=== PATIENT | female | born 1975 | race Caucasian/White ===

== ENCOUNTER 2017-07-10 11:46 | Emergency (ER) | payer SELFPAY ==
--- NOTE | 2017-07-10 11:58 | PDOC ---
Attending Attestation - Resident Resident Name: Cj Salmeron - HPI HPI: 07/10/17 12:28 Pt presents to the ED complaining of a two day history of wheezing and shortness of breath consistent with prior asthma exacerbations. History of asthma without intubations. used nebs last night without relief. - Physicial Exam PE: 07/10/17 12:31 Agree with resident exam. Patient is speaking in complete sentences but is diffusely wheezing with good air entry bilaterally. Not tachypneic. - Medical Decision Making 07/10/17 12:31 Pt presents to the ED complaining of wheezing and shortness of breath consistent with prior asthma exacerbations. Will treat with nebs and steroids and reassess.
[2017-07-10] MEDS ORDERED: ALBUTEROL SO4 2.5/IPRATROPIUM 0.5 INH SOL 3 ML VIAL.NEB. NEB ONE ×3 (12:02→12:29)
[2017-07-10] MEDS ORDERED: predniSONE 20 MG TABLET (UD) PO ONE (12:05)
--- NOTE | 2017-07-10 12:06 | PDOC ---
History of Present Illness - General Chief Complaint: Shortness of Breath Stated Complaint: SOB Time Seen by Provider: 07/10/17 11:49 - History of Present Illness Initial Comments: 07/10/17 12:09 The patient is a 41 year old female with a history of asthma who presents for evaluation of an asthma exacerbation. The patient reports waking up this morning with SOB and cough typical of her asthma exacerbations unresponsive to her inhaler. She states that she initially presented to [facility] but left AMA after a duoneb treatment because she felt she wasn't getting seen. She states that she initially felt better at home, but redeveloped symptoms at home prompting her presentation to our ED for evaluation. She received [address] to our ED. She denies fevers, chills, sick contacts, chest pain, abdominal pain, or changes with urination or bowel movements. Past History - Past Medical History Allergies/Adverse Reactions: Allergies Allergy/AdvReac Type Severity Reaction Status Date / Time No Known Allergies Allergy Verified 07/10/17 11:59 Home Medications: Ambulatory Orders Albuterol Sulfate Inhaler - [Ventolin HFA Inhaler -] 1 - 2 inh PO QID PRN #2 inhaler 07/10/17 Prednisone [Deltasone -] 40 mg PO DAILY #5 tablet 07/10/17 Asthma: Yes COPD: No - Suicide/Smoking/Psychosocial Hx Smoking History: Former smoker Have you smoked in the past 12 months: No If you are a former smoker, when did you quit?: 2016 Information on smoking cessation initiated: No Hx Alcohol Use: No Drug/Substance Use Hx: No Review of Systems - Review of Systems Comments:: 07/10/17 12:12 Constitutional: No fevers, chills, fatigue, malaise HEENT: No Rhinorrhea, nasal congestion, visual changes Cardiovascular: No chest pain, syncope, palpitations, lightheadedness Respiratory: Cough, SOB. No Hemoptysis, Gastrointestinal: No Abdominal pain, Nausea, Vomiting, Constipation, Diarrhea, Melena Genitourinary: No Dysuria, Frequency, Urgency, Hesitancy, Hematuria, Flank pain Musculoskeletal: No Myalgia, arthralgia Skin: No rashes, bruising, pallor Neurologic: No Headache, Dizziness, Numbness, Weakness, or Tingling Psychiatric: No Hallucinations. No SI or HI *Physical Exam - Vital Signs Last Vital Signs Temp Pulse Resp BP Pulse Ox 98.4 F 100 H 22 113/79 99 07/10/17 12:00 07/10/17 12:00 07/10/17 12:00 07/10/17 12:00 07/10/17 12:00 - Physical Exam Comments: 07/10/17 12:12 General Appearance: Nourished. No Apparent Distress HEENT: EOMI, BROCK. No Pharyngeal Erythema, Tonsillar Exudate, Tonsillar Erythema Neck: No Cervical Lymphadenopathy Respiratory/Chest: Lungs Clear, Normal Breath Sounds. Diffuse expiratory and inspiratory wheezing noted on auscultation. No Crackles, Rales, Rhonchi, Cardiovascular: Regular Rhythm, Regular Rate. No Murmur, Gallops, Rubs Gastrointestinal/Abdominal: Normal Bowel Sounds, Soft. No Guarding, Rebound, Tenderness Musculoskeletal: No CVA Tenderness Extremity: Normal Capillary Refill Integumentary: Normal Color, Dry, Warm Neurologic: Fully Oriented, Alert, Normal Mood/Affect, Normal Response, Medical Decision Making - Medical Decision Making 07/10/17 12:13 The patient is a 41 year old female with a history of asthma who presents for evaluation of an asthma exacerbation. Given the patient's history of asthma and physical exam, it is likely her symptoms are due to an asthma exacerbation. We will treat the patient here with duonebs and oral prednisone in the ED. We will continue to monitor and reassess. 07/10/17 14:23 The patient reports significant improvement in her symptoms after 2 dounebs and 1 albuterol nebulizer. We are comfortable discharging the patient home at this time on a course of prednisone and primary care provider follow up. We discussed the plan with the patient who voiced understanding and is agreeable with the plan. *DC/Admit/Observation/Transfer Diagnosis at time of Disposition: Asthma exacerbation Qualifiers: Asthma severity: mild Asthma persistence: unspecified Qualified Code(s): J45.901 - Unspecified asthma with (acute) exacerbation - Discharge Dispostion Disposition: HOME Condition at time of disposition: Improved Admit: No - Prescriptions Prescriptions: Albuterol Sulfate Inhaler - [Ventolin HFA Inhaler -] 1 - 2 inh PO QID PRN #2 inhaler PRN Reason: Short Of Breath/Wheezing Prednisone [Deltasone -] 40 mg PO DAILY #5 tablet - Referrals - Patient Instructions Printed Discharge Instructions: DI for Asthma -- Adult Additional Instructions: Please return to the ER if you experience concerning or worsening symptoms including worsening difficulty breathing, chest pain or fevers. We have sent a prescription for steroids to your pharmacy which you should take 40mg daily for the next 5 days. Please call to schedule a follow up appointment with your primary care provider to discuss your ER visit and further management of your symptoms within 1 week. - Post Discharge Activity
[2017-07-10] MEDS ORDERED: predniSONE 20 MG TABLET (UD) ONE (12:09)
[2017-07-10 12:10] VITALS: TEMP 98.4; BMI 32.8
[2017-07-10] MEDS ORDERED: ALBUTEROL SO4 0.5 % INH SOLN 2.5 MG/0.5 ML VIAL.NEB. NEB ONE (13:07)
[2017-07-10] MEDS ORDERED: ALBUTEROL SO4 0.083% IH SOL 2.5 MG/3 ML VIAL.NEB. NEB ONE (13:15)
[2017-07-10 14:32] VITALS: BP 108/68; PULSE 99
== END 2017-07-10 14:32 | disposition home or self-care (01) ==
LOC: JER 11:46
PROC: 3E0F7GC Introduction of Other Therapeutic Substance into Respiratory Tract, Via Natural or Artificial Opening (ICD-10-PCS; principal; 2017-07-10)
PROC: 3E0F7GC Introduction of Other Therapeutic Substance into Respiratory Tract, Via Natural or Artificial Opening (ICD-10-PCS; 2017-07-10)
PROC: 3E0F7GC Introduction of Other Therapeutic Substance into Respiratory Tract, Via Natural or Artificial Opening (ICD-10-PCS; 2017-07-10)
DX: J45.901 Unspecified asthma with (acute) exacerbation (principal)
CPT/HCPCS: 99282-25

== ENCOUNTER 2017-08-24 00:16 | Emergency (ER) | payer SELFPAY ==
[2017-08-24 00:34] VITALS: BP 147/82; PULSE 100; BMI 30.7
[2017-08-24] MEDS ORDERED: ALBUTEROL SO4 0.083% IH SOL 2.5 MG/3 ML VIAL.NEB. NEB ONE ×3 (01:04→01:37)
[2017-08-24] MEDS ORDERED: methylPREDNISolone NA SUCC 125 MG/2 ML VIAL IVPB ONE (01:04)
--- NOTE | 2017-08-24 01:04 | PDOC ---
History of Present Illness - General History Source: Patient Exam Limitations: No Limitations - History of Present Illness Initial Comments: 08/24/17 01:39 Patient is a 43 year old woman with a significant past medical history of Asthma , who presents to the ED with complaints of Sob that began 1 hour prior to ED arrival. Patient reports being unable to breathe upon ED arrival and does not state any other complaints. Denies chest pain, nausea, vomiting. Denies lightheadedness, dizziness. Denies coughing. Deneis vision changes. Denies sick contacts, out of state travel. Denies any other symptoms. Allergies: None Social history: Former smoker. No alcohol. No illicit drugs. Surgical history: None PMD: None <Matt Brown - Last Filed: 08/24/17 01:39> - General History Source: Patient <RaulitoBro zaman - Last Filed: 08/24/17 02:09> - General Chief Complaint: Respiratory Stated Complaint: DIFFICULTY BREATHING Time Seen by Provider: 08/24/17 01:02 Past History <Matt Brown - Last Filed: 08/24/17 01:39> - Past Medical History Asthma: Yes COPD: No - Suicide/Smoking/Psychosocial Hx Smoking History: Unknown if ever smoked Have you smoked in the past 12 months: No If you are a former smoker, when did you quit?: 2016 Information on smoking cessation initiated: No Hx Alcohol Use: No Drug/Substance Use Hx: No <Bro Thakkar - Last Filed: 08/24/17 02:09> - Past Medical History Allergies/Adverse Reactions: Allergies Allergy/AdvReac Type Severity Reaction Status Date / Time No Known Allergies Allergy Verified 08/24/17 00:31 Home Medications: Ambulatory Orders Albuterol Sulfate Inhaler - [Ventolin HFA Inhaler -] 1 - 2 inh PO QID PRN #2 inhaler 07/10/17 predniSONE [Deltasone -] 40 mg PO DAILY #5 tablet 07/10/17 Review of Systems - Review of Systems Able to Perform ROS?: Yes Comments:: 08/24/17 01:39 CONSTITUTIONAL: Absent: fever, no chills, no fatigue EYES: Absent: visual changes ENT: Absent: ear pain, no sore throat CARDIOVASCULAR: Absent: chest pain, no palpitations RESPIRATORY: +Sob. Absent: cough, GI: Absent: abdominal pain, no nausea, no vomiting, no constipation, no diarrhea GENITOURINARY: Absent: dysuria, no frequency, no hematuria MUSCULOSKELETAL: Absent: back pain, no arthralgia, no myalgia SKIN: Absent: rash <Matt Brown - Last Filed: 08/24/17 01:39> *Physical Exam - Vital Signs Last Vital Signs Temp Pulse Resp BP Pulse Ox 100 H 14 147/82 98 08/24/17 00:31 08/24/17 00:31 08/24/17 00:31 08/24/17 00:31 - Physical Exam Comments: 08/24/17 01:40 GENERAL: +Moderate distress. Well-appearing, well-nourished. No apparent distress. HEENT: Normocephalic, atraumatic. PERRL, EOM intact. CARDIOVASCULAR: Normal S1, S2. Regular rate and rhythm. PULMONARY: +Coarse bilateral wheezing. +Mild retractions. +Conversation dyspnea. Clear to auscultation bilaterally. ABDOMEN: Soft, non-distended, non-tender. EXTREMITIES: Normal ROM in all four extremities. No gross deformities. SKIN: Warm, dry. No rash NEUROLOGICAL: No focal neurological deficits. <Matt Brown - Last Filed: 08/24/17 01:39> - Vital Signs Last Vital Signs Temp Pulse Resp BP Pulse Ox 100 H 14 147/82 98 08/24/17 00:31 08/24/17 00:31 08/24/17 00:31 08/24/17 00:31 <Bro Thakkar - Last Filed: 08/24/17 02:09> Medical Decision Making - Medical Decision Making 08/24/17 02:08 Dr. Thakkar: The scribe's documentation has been prepared under my direction and personally reviewed by me in its entirery. I confirm that the note above accurately reflects all work, treatment, procedures, and medical decision making performed by me. Patient eloped without informing anyone from the staff, and received only albuterol nebulizer <Bro Thakkar - Last Filed: 08/24/17 02:09> *DC/Admit/Observation/Transfer - Attestations Scribe Attestion: 08/24/17 01:40 Documentation prepared by Matt Brown, acting as medical communication specialist for Bro Thakkar MD/DO. <Matt Brown - Last Filed: 08/24/17 01:39> - Discharge Dispostion Admit: No <Bro Thakkar - Last Filed: 08/24/17 02:09> Diagnosis at time of Disposition: Eloped - Discharge Dispostion Disposition: ELOPED Condition at time of disposition: Unchanged/Unknown
[2017-08-24] MEDS ORDERED: MAGNESIUM SULF 50% (8.12 MEQ/2 ML-1 GM VIAL) IVPB ONE (01:05)
[2017-08-24] MEDS ORDERED: MAGNESIUM SULF 50% (8.12 MEQ/2 ML-1 GM VIAL) ONE (01:37)
[2017-08-24] MEDS ORDERED: methylPREDNISolone NA SUCC 125 MG/2 ML VIAL ONE (01:37)
== END 2017-08-24 01:14 | disposition left against medical advice (07) ==
LOC: JER 00:16
PROC: 3E0F7GC Introduction of Other Therapeutic Substance into Respiratory Tract, Via Natural or Artificial Opening (ICD-10-PCS; principal; 2017-08-24)
DX: J45.909 Unspecified asthma, uncomplicated (principal); R06.02 Shortness of breath
CPT/HCPCS: 99281-25

== ENCOUNTER 2017-12-06 19:36 | Emergency (ER) | payer OTHER ==
[2017-12-06 19:41] VITALS: BP 128/92; PULSE 102; TEMP 98.1; BMI 31.3
[2017-12-06] MEDS ORDERED: ALBUTEROL SO4 2.5/IPRATROPIUM 0.5 INH SOL 3 ML VIAL.NEB. NEB ONE ×3 (19:41→20:30)
--- NOTE | 2017-12-06 19:42 | PDOC ---
Rapid Medical Evaluation Time Seen by Provider: 12/06/17 19:38 Medical Evaluation: Allergies Allergy/AdvReac Type Severity Reaction Status Date / Time No Known Allergies Allergy Verified 08/24/17 00:31 12/06/17 19:39 Asthma exacerbation starting last night. Used ventolin inhaler with little relief of symptom. Admits to dry cough. Has been admitted to the hospital for exacerbations, never intubated. Exam: RRR, Expiratory wheezing b/l Orders: duestefaniab Pt. to proceed to the ED for further evaluation
[2017-12-06] MEDS ORDERED: DEXAMETHASONE LIQUID 0.5 MG/5 ML 240 ML BULK BOTTLE PO ONE (20:27)
[2017-12-06] MEDS ORDERED: DEXAMETHASONE SOD PHOSPHATE 10 MG/1 ML VIAL ONE (20:30)
--- NOTE | 2017-12-06 20:31 | PDOC ---
History of Present Illness - General Chief Complaint: Asthma Stated Complaint: ASTHMA Time Seen by Provider: 12/06/17 19:38 - History of Present Illness Initial Comments: 32-year-old female with past medical history significant for asthma at times poorly controlled with home inhaler. She was never intubated however she was hospitalized multiple times. She presents for evaluation of difficulty breathing and shortness of breath since last night. 12/06/17 20:28 Past History - Past Medical History Allergies/Adverse Reactions: Allergies Allergy/AdvReac Type Severity Reaction Status Date / Time No Known Allergies Allergy Verified 08/24/17 00:31 Home Medications: Ambulatory Orders Albuterol Sulfate Inhaler - [Ventolin HFA Inhaler -] 1 - 2 inh PO QID PRN #2 inhaler 07/10/17 predniSONE [Deltasone -] 40 mg PO DAILY #5 tablet 07/10/17 Asthma: Yes COPD: No - Suicide/Smoking/Psychosocial Hx Smoking History: Unknown if ever smoked Have you smoked in the past 12 months: No If you are a former smoker, when did you quit?: 2016 Hx Alcohol Use: No Drug/Substance Use Hx: No Review of Systems - Review of Systems Comments:: GENERAL/CONSTITUTIONAL: No fever or chills. No weakness. No weight change. HEAD, EYES, EARS, NOSE AND THROAT: No change in vision. No ear pain or discharge. No sore throat. CARDIOVASCULAR: No chest pain or shortness of breath. RESPIRATORY: + cough, wheezing, difficulty breathing. GASTROINTESTINAL: No nausea, vomiting, diarrhea or constipation. No rectal bleeding. GENITOURINARY: No dysuria, frequency, or change in urination. MUSCULOSKELETAL: No joint or muscle swelling or pain. No neck or back pain. SKIN AND BREASTS: No rash or easy bruising. NEUROLOGIC: No headache, vertigo, loss of consciousness, or loss of sensation. PSYCHIATRIC: No depression or anxiety. ENDOCRINE: No increased thirst. No abnormal weight change. HEMATOLOGIC/LYMPHATIC: No anemia, easy bleeding, or history of blood clots. ALLERGIC/IMMUNOLOGIC: No hives or skin allergy. No latex allergy. 12/06/17 20:28 *Physical Exam - Vital Signs Last Vital Signs Temp Pulse Resp BP Pulse Ox 98.1 F 102 H 24 128/92 97 12/06/17 19:40 12/06/17 19:40 12/06/17 19:40 12/06/17 19:40 12/06/17 19:40 - Physical Exam Comments: GENERAL: The patient is awake, alert, and fully oriented, in no acute distress. HEAD: Normal with no signs of trauma. EYES: Pupils equal, round and reactive to light, extraocular movements intact, sclera anicteric, conjunctiva clear. ENT: Ears normal, nares patent, oropharynx clear without exudates. Moist mucous membranes. NECK: Normal range of motion, supple without lymphadenopathy, JVD, or masses. LUNGS: Diffuse expiratory wheezes HEART: Regular rate and rhythm, normal S1 and S2 without murmur, rub or gallop. ABDOMEN: Soft, nontender, normoactive bowel sounds. No guarding, no rebound. No masses. EXTREMITIES: Normal range of motion, no edema. No clubbing or cyanosis. No cords, erythema, or tenderness. NEUROLOGICAL: Cranial nerves II through XII grossly intact. Normal speech, normal gait. PSYCH: Normal mood, normal affect. SKIN: Warm, Dry, normal turgor, no rashes or lesions noted. 12/06/17 20:29 ED Treatment Course - Medications Given in the ED: ED Medications Discontinued Medications Generic Name Dose Route Start Last Admin Trade Name Freq PRN Reason Stop Dose Admin Albuterol/Ipratropium 1 amp 12/06/17 19:41 12/06/17 20:05 Duoneb - NEB 12/06/17 19:42 1 amp ONCE ONE Administration Medical Decision Making - Medical Decision Making 42-year-old female with an exacerbation of asthma. I will give her 2 more DuoNeb treatments. She's had 2 before I saw her. I will also add Decadron. I would like to add magnesium but she does not want an IV and she states that she cannot stay I've explained to her that if she is not wheezing and I am comfortable with her progress I will discharge her however I would like to give her magnesium since she's had severe asthma attacks in the past although she's never been intubated. 12/06/17 20:30 12/06/17 21:33 Reevaluation after the fourth DuoNeb and Decadron her wheezing has resolved she has full equal breath sounds bilaterally. She can be safely discharged. 12/06/17 21:35 *DC/Admit/Observation/Transfer Diagnosis at time of Disposition: Asthma - Discharge Dispostion Disposition: HOME Condition at time of disposition: Improved Decision to Admit order: No - Referrals Referrals: Wilmer Tam MD, MD [Staff Physician] - - Patient Instructions Printed Discharge Instructions: Asthma -- Adult Additional Instructions: Due to your recent exacerbation of asthma and poorly controlled home medications. I've referred to a kosher sealer. Return to the emergency room if your symptoms worsen or go unresolved prior to follow-up with pulmonology. In the meantime you've gotten a dose of oral steroids as well as for DuoNeb treatments. Follow-up with pulmonology within the next 1-2 days. - Post Discharge Activity
[2017-12-06] MEDS: ALBUTEROL SO4 2.5/IPRATROPIUM 0.5 INH SOL 3 ML VIAL.NEB. NEB SCH ×3 (20:33→21:14)
== END 2017-12-06 22:17 | disposition home or self-care (01) ==
LOC: JERFT 19:36
PROC: 3E0F7GC Introduction of Other Therapeutic Substance into Respiratory Tract, Via Natural or Artificial Opening (ICD-10-PCS; principal; 2017-12-06)
PROC: 3E0F7GC Introduction of Other Therapeutic Substance into Respiratory Tract, Via Natural or Artificial Opening (ICD-10-PCS; 2017-12-06)
DX: J45.901 Unspecified asthma with (acute) exacerbation (principal)
CPT/HCPCS: 94640; 99281-25; J7620

== ENCOUNTER 2017-12-28 03:01 | Emergency (ER) | payer SELFPAY ==
[2017-12-28] MEDS ORDERED: ALBUTEROL SO4 2.5/IPRATROPIUM 0.5 INH SOL 3 ML VIAL.NEB. NEB ONE ×2 (03:04→03:11)
[2017-12-28 03:36] VITALS: BP 112/100; PULSE 102; TEMP 97.3; BMI 31.1
[2017-12-28] MEDS ORDERED: predniSONE 20 MG TABLET (UD) PO ONE (03:40)
--- NOTE | 2017-12-28 03:41 | PDOC ---
History of Present Illness - General Chief Complaint: Asthma Stated Complaint: ASTHMA Time Seen by Provider: 12/28/17 03:37 History Source: Patient - History of Present Illness Initial Comments: 12/28/17 03:41 42 year old female with history of asthma c/o wheezing x 1 day. patient reports that she ran out of medication. Past History - Past Medical History Allergies/Adverse Reactions: Allergies Allergy/AdvReac Type Severity Reaction Status Date / Time No Known Allergies Allergy Verified 12/28/17 03:27 Home Medications: Ambulatory Orders Albuterol Sulfate Inhaler - [Ventolin HFA Inhaler -] 1 - 2 inh PO QID PRN #2 inhaler 12/28/17 predniSONE [Deltasone -] 60 mg PO DAILY #15 tablet 12/28/17 Asthma: Yes COPD: No - Suicide/Smoking/Psychosocial Hx Smoking History: Former smoker Have you smoked in the past 12 months: No If you are a former smoker, when did you quit?: 2015 Information on smoking cessation initiated: No Hx Alcohol Use: No Drug/Substance Use Hx: No Review of Systems - Review of Systems Able to Perform ROS?: Yes Is the patient limited Iranian proficient: No Constitutional: No: Symptoms Reported, See HPI, Chills, Diaphoresis, Fever, Loss of Appetite, Malaise, Night Sweats, Weakness, Weight Stable, Unintentional Wgt. Loss, Unexplained wgt Loss, Other HEENTM: No: Symptoms Reported, See HPI, Eye Pain, Blurred Vision, Tearing, Recent change in vision, Double Vision, Cataracts, Ear Pain, Ocular Prothesis, Ear Discharge, Nose Pain, Nose Congestion, Tinnitus, Nose Bleeding, Hearing Loss , Throat Pain, Throat Swelling, Mouth Pain, Dental Problems, Difficulty Swallowing, Mouth Swelling, Other Respiratory: Yes: Cough, Wheezing. No: Symptoms reported, See HPI, Orthopnea, Shortness of Breath, SOB with Exertion, SOB at Rest, Stridor, Productive cough, Hemoptysis, Other Cardiac (ROS): No: Symptoms Reported, See HPI, Chest Pain, Edema, Irregular Heart Rate, Lightheadedness, Palpitations, Syncope, Chest Tightness, Other ABD/GI: No: Symptoms Reported, See HPI, Abdominal Distended, Abd. Pain w/ defecation, Blood Streaked Bowels, Constipated, Diarrhea, Difficulty Swallowing , Nausea, Poor Appetite, Poor Fluid Intake, Rectal Bleeding, Vomiting, Indigestion, Abdominal cramping, Tarry Stools, Other *Physical Exam - Vital Signs Last Vital Signs Temp Pulse Resp BP Pulse Ox 97.3 F L 102 H 22 112/100 100 12/28/17 03:27 12/28/17 03:27 12/28/17 03:27 12/28/17 03:27 12/28/17 03:27 - Physical Exam General Appearance: Yes: Appropriately Dressed Respiratory/Chest: positive: Decreased Breath Sounds, Wheezing Cardiovascular: positive: Regular Rate, Tachycardia Gastrointestinal/Abdominal: positive: Normal Bowel Sounds, Soft Extremity: positive: Normal Capillary Refill, Normal Inspection, Normal Range of Motion Integumentary: positive: Normal Color, Dry, Warm Neurologic: positive: stone circular sawyer II-XII NML intact, Fully Oriented, Alert, Normal Mood/ Affect ED Treatment Course - Medications Given in the ED: ED Medications Discontinued Medications Generic Name Dose Route Start Last Admin Trade Name Freq PRN Reason Stop Dose Admin Albuterol/Ipratropium 3 amp 12/28/17 03:11 12/28/17 03:11 Duoneb - NEB 12/28/17 03:12 3 amp NOW ONE Administration Progress Note - Progress Note Progress Note: A: asthma exacerbation P: cbc cmp *DC/Admit/Observation/Transfer Diagnosis at time of Disposition: Asthma exacerbation Qualifiers: Asthma severity: mild Asthma persistence: intermittent Qualified Code(s): J45.21 - Mild intermittent asthma with (acute) exacerbation - Prescriptions Prescriptions: Albuterol Sulfate Inhaler - [Ventolin HFA Inhaler -] 1 - 2 inh PO QID PRN #2 inhaler PRN Reason: Short Of Breath/Wheezing predniSONE [Deltasone -] 60 mg PO DAILY #15 tablet - Referrals - Patient Instructions Printed Discharge Instructions: Asthma -- Adult - Post Discharge Activity Forms/Work/School Notes: Back to Work
[2017-12-28] MEDS ORDERED: ALBUTEROL SO4 0.083% IH SOL 2.5 MG/3 ML VIAL.NEB. NEB ONE ×2 (03:45→03:47)
[2017-12-28] MEDS ORDERED: predniSONE 20 MG TABLET (UD) ONE (03:47)
[2017-12-28] MEDS: ALBUTEROL SO4 2.5/IPRATROPIUM 0.5 INH SOL 3 ML VIAL.NEB. NEB SCH ×2 (03:51→04:06)
== END 2017-12-28 04:06 | disposition home or self-care (01) ==
LOC: JER 03:01
PROC: 3E0F7GC Introduction of Other Therapeutic Substance into Respiratory Tract, Via Natural or Artificial Opening (ICD-10-PCS; principal; 2017-12-28)
DX: J45.21 Mild intermittent asthma with (acute) exacerbation (principal); Z87.891 Personal history of nicotine dependence
CPT/HCPCS: 99281-25; J7620

== ENCOUNTER 2019-03-21 21:23 | Emergency (ER) | payer OTHER ==
[2019-03-21 21:33] VITALS: BP 112/71; PULSE 106; TEMP 98.7; BMI 34.4
[2019-03-21] MEDS ORDERED: LIDOCAINE 5% TOPICAL PATCH TP ONE (21:34)
[2019-03-21] MEDS ORDERED: KETOROLAC TROMETHAMINE 60 MG/2 ML VIAL IM ONE (21:34)
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
[2019-03-21] MEDS ORDERED: LIDOCAINE PATCH REMOVAL MC SCH (22:00)
[2019-03-21] MEDS ORDERED: KETOROLAC TROMETHAMINE 60 MG/2 ML VIAL ONE (22:06)
[2019-03-21] MEDS ORDERED: LIDOCAINE 5% TOPICAL PATCH ONE (22:06)
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
== END 2019-03-21 22:54 | disposition home or self-care (01) ==
LOC: JERFT 21:23
PROC: 3E0233Z Introduction of Anti-inflammatory into Muscle, Percutaneous Approach (ICD-10-PCS; principal; 2019-03-21)
DX: S16.1XXA Strain of muscle, fascia and tendon at neck level, initial encounter (principal); S39.012A Strain of muscle, fascia and tendon of lower back, initial encounter; V43.52XA Car driver injured in collision with other type car in traffic accident, initial encounter; Y92.410 Unspecified street and highway as the place of occurrence of the external cause; J45.909 Unspecified asthma, uncomplicated; Z87.891 Personal history of nicotine dependence
CPT/HCPCS: 99281-25

== ENCOUNTER 2019-04-14 12:00 | Emergency (ER) | payer OTHER ==
[2019-04-14 12:14] VITALS: BP 102/82; PULSE 75; TEMP 97.3; BMI 29.0
--- NOTE | 2019-04-14 12:16 | PDOC ---
History of Present Illness - General Chief Complaint: Asthma Stated Complaint: ASTHMA ATTACK Time Seen by Provider: 04/14/19 12:14 History Source: Patient Exam Limitations: No Limitations Past History - Travel Traveled outside of the country in the last 30 days: No Close contact w/someone who was outside of country & ill: No - Past Medical History Allergies/Adverse Reactions: Allergies Allergy/AdvReac Type Severity Reaction Status Date / Time No Known Allergies Allergy Verified 04/14/19 12:14 Home Medications: Ambulatory Orders Albuterol Sulfate Inhaler - [Ventolin HFA Inhaler -] 1 - 2 inh PO QID PRN #2 inhaler 12/28/17 Cyclobenzaprine HCl [Flexeril 10 mg] 10 mg PO HS PRN #10 tablet 03/21/19 Ibuprofen [Motrin -] 600 mg PO TID #30 tablet 03/21/19 Fluticasone/Salmeterol [Advair Hfa 45-21 Mcg Inhaler] 1 inh PO BID #1 inhaler predniSONE [Deltasone -] 40 mg PO DAILY #8 tablet 04/14/19 Asthma: Yes COPD: No - Psycho Social/Smoking Cessation Hx Smoking History: Never smoked Have you smoked in the past 12 months: No If you are a former smoker, when did you quit?: 2015 Information on smoking cessation initiated: No Hx Alcohol Use: No Drug/Substance Use Hx: No Review of Systems - Review of Systems Able to Perform ROS?: Yes Comments:: 04/14/19 14:25 CONSTITUTIONAL: Absent: fever, chills, diaphoresis, generalized weakness, malaise, loss of appetite HEENT: Absent: rhinorrhea, nasal congestion, throat pain, throat swelling, difficulty swallowing, mouth swelling, ear pain, eye pain, visual Changes CARDIOVASCULAR: Absent: chest pain, loss of consciousness, palpitations, irregular heart rate, peripheral edema RESPIRATORY: Present: wheezing, cough Absent: shortness of breath, dyspnea with exertion, orthopnea, stridor, hemoptysis GASTROINTESTINAL: Absent: abdominal pain, abdominal distension, nausea, vomiting, diarrhea, constipation, melena, hematochezia GENITOURINARY: Absent: dysuria, frequency, urgency, hesitancy, hematuria, flank pain, genital pain MUSCULOSKELETAL: Absent: myalgia, arthralgia, joint swelling SKIN: Absent: rash, itching, pallor HEMATOLOGIC/IMMUNOLOGIC: Absent: easy bleeding, easy bruising, lymphadenopathy, frequent infections ENDOCRINE: Absent: unexplained weight gain, unexplained weight loss, heat intolerance, cold intolerance NEUROLOGIC: Absent: headache, focal weakness or paresthesias, dizziness, unsteady gait, seizure, mental status changes, bladder or bowel incontinence PSYCHIATRIC: Absent: anxiety, depression, suicidal or homicidal ideation, hallucinations. Is the patient limited Iranian proficient: No *Physical Exam - Vital Signs Last Vital Signs Temp Pulse Resp BP Pulse Ox 97.3 F L 75 16 102/82 100 04/14/19 12:00 04/14/19 12:00 04/14/19 12:00 04/14/19 12:00 04/14/19 12:00 - Physical Exam Comments: 04/14/19 14:26 GENERAL: Well developed, well nourished. Awake and alert. No acute distress. HEENT: Normocephalic, atraumatic. PERRLA, EOMI. No conjunctival pallor. Sclera are non- icteric. Moist mucous membranes. Oropharynx is clear. NECK: Supple. Full ROM. No JVD. Carotid pulses 2+ and symmetric, without bruits. No thyromegaly. No lymphadenopathy. CARDIOVASCULAR: Regular rate and rhythm. No murmurs, rubs, or gallops. Distal pulses are 2+ and symmetric. PULMONARY: No evidence of respiratory distress. Lungs with wheezing b/l. Fair aeration to the bases. No rales or rhonchi. ABDOMINAL: Soft. Non-tender. Non-distended. No rebound or guarding. No organomegaly. Normoactive bowel sounds. MUSCULOSKELETAL Normal range of motion at all joints. No bony deformities or tenderness. No CVA tenderness. EXTREMITIES: No cyanosis. No clubbing. No edema. No calf tenderness. SKIN: Warm and dry. Normal capillary refill. No rashes. No jaundice. NEUROLOGICAL: Alert, awake, appropriate. Cranial nerves 2-12 intact. No deficits to light touch and temperature in face, upper extremities and lower extremities. No motor deficits in the in face, upper extremities and lower extremities. Normoreflexic in the upper and lower extremities. Normal speech. Toes are down- going bilaterally. Gait is normal without ataxia. PSYCHIATRIC: Cooperative. Good eye contact. Appropriate mood and affect. Medical Decision Making - Medical Decision Making 04/14/19 14:33 The patient is a 43-year-old female past medical history of asthma who presents to the ER today for an asthma exacerbation starting approximately 30 minutes prior to arrival. The patient states she tried using her albuterol inhaler at home however she states it was not working. She comes to the ER for duo nebs and steroids. She states that she has been hospitalized for her asthma previously; however, she has never been intubated. Denies shortness of breath, chest pain, sore throat, nausea vomiting diarrhea. A/P: Asthma exacerbation Patient needs asthma action plan criteria. Respiratory paged, case management request added. Four DuoNeb's and Decadron given in the ER with relief of symptoms. Respiratory at bedside and evaluating patient. Repeat lung sounds now without wheezing bilaterally. Patient discharged home with albuterol, Advair added to her daily regimen Pulmonology and primary care follow-up given. I discussed the physical exam findings, ancillary test results and final diagnoses with the patient. I answered all of the patient's questions. The patient was satisfied with the care received and felt comfortable with the discharge plan and treatment plan. The Patient agrees to follow up with the primary care physician/specialist within 24-72 hours. Return precautions were given. Discharge - Discharge Information Problems reviewed: Yes Clinical Impression/Diagnosis: Asthma exacerbation Qualifiers: Asthma severity: mild Asthma persistence: intermittent Qualified Code(s): J45.21 - Mild intermittent asthma with (acute) exacerbation Condition: Stable Disposition: HOME - Admission No - Additional Discharge Information Prescriptions: Fluticasone/Salmeterol [Advair Hfa 45-21 Mcg Inhaler] 1 inh PO BID #1 inhaler predniSONE [Deltasone -] 40 mg PO DAILY #8 tablet - Follow up/Referral Referrals: Wilmer Tam MD, MD [Staff Physician] - Giovani Mercado MD [Staff Physician] - - Patient Discharge Instructions Patient Printed Discharge Instructions: Asthma -- Adult Additional Instructions: You are evaluated for your asthma exacerbation today. Please start taking the prednisone 40 mg daily starting tomorrow. Use the albuterol inhaler every 4 hours until your spasm gets better. Start taking the Advair twice a day. Make sure you wash out your mouth and the spacer after taking the medication. Please follow-up with pulmonology. Referral has been attached Follow-up with your primary care doctor this week. Return to the ER for difficulty breathing, shortness of breath, chest pain or if you have any changes in her symptoms. - Post Discharge Activity
[2019-04-14] MEDS ORDERED: DEXAMETHASONE LIQUID 0.5 MG/5 ML PO ONE (12:20)
[2019-04-14] MEDS ORDERED: DEXAMETHASONE SOD PHOSPHATE 10 MG/1 ML VIAL ONE (12:23)
[2019-04-14] MEDS ORDERED: ALBUTEROL SO4 2.5/IPRATROPIUM 0.5 INH SOL 3 ML VIAL.NEB. NEB ONE ×2 (12:24→13:14)
[2019-04-14] MEDS: ALBUTEROL SO4 2.5/IPRATROPIUM 0.5 INH SOL 3 ML VIAL.NEB. NEB SCH ×3 (12:29→13:15)
== END 2019-04-14 13:19 | disposition home or self-care (01) ==
LOC: JERFT 12:00 → JER 12:00 → JERFT 13:19
PROC: 3E0F7GC Introduction of Other Therapeutic Substance into Respiratory Tract, Via Natural or Artificial Opening (ICD-10-PCS; principal; 2019-04-14)
DX: J45.21 Mild intermittent asthma with (acute) exacerbation (principal)
CPT/HCPCS: 94664; 99281-25

== ENCOUNTER 2019-06-09 08:04 | Emergency (ER) | payer OTHER ==
[2019-06-09] MEDS ORDERED: ALBUTEROL SO4 2.5/IPRATROPIUM 0.5 INH SOL 3 ML VIAL.NEB. NEB ONE ×4 (08:10→08:36)
[2019-06-09 08:15] VITALS: TEMP 98; BMI 29.0
--- NOTE | 2019-06-09 08:31 | PDOC ---
History of Present Illness - History of Present Illness Initial Comments: Becky French is a 43yo woman with a PMH of asthma who presents reporting an asthma exacerbation. She states that she had been feeling well yesterday but woke this morning and "couldn't breath at all." She reports that she had run out of her albuterol inhaler at home so was unable to treat her symptoms, though she did take 2 prednisone tablets that she had left over at home. Ms French denie any other symptoms including fever, recent illness, or congestion. She appears upset and is unwilling to answer additional questions. <Becki Simeon - Last Filed: 06/09/19 09:10> <Aleah Kelly - Last Filed: 06/10/19 15:39> - General Chief Complaint: Respiratory Stated Complaint: ASTHMA Time Seen by Provider: 06/09/19 08:24 Past History - Past Medical History Asthma: Yes COPD: No - Psycho Social/Smoking Cessation Hx Smoking History: Unknown if ever smoked Have you smoked in the past 12 months: No If you are a former smoker, when did you quit?: 2016 Hx Alcohol Use: No Drug/Substance Use Hx: No <Becki Simeon - Last Filed: 06/09/19 09:10> <Aleah Kelly - Last Filed: 06/10/19 15:39> - Past Medical History Allergies/Adverse Reactions: Allergies Allergy/AdvReac Type Severity Reaction Status Date / Time No Known Allergies Allergy Verified 06/09/19 08:13 Home Medications: Ambulatory Orders Albuterol Sulfate Inhaler - [Ventolin HFA Inhaler -] 1 - 2 inh PO QID PRN #2 inhaler 12/28/17 Fluticasone/Salmeterol [Advair Hfa 45-21 Mcg Inhaler] 1 inh PO BID #1 inhaler predniSONE [Deltasone -] 40 mg PO DAILY #8 tablet 04/14/19 Albuterol Sulfate Inhaler - [Ventolin Hfa Inhaler -] 1 - 2 inh PO Q4H PRN #1 inhaler 06/09/19 Prednisone [Prednisone 50 MG TABLETS] 50 mg PO DAILY #5 tablet 06/09/19 Review of Systems - Review of Systems Comments:: eneral: No fevers, no chills, no weight or appetite change, no malaise HEENT: No changes in vision, no changes in hearing, no congestion, no sore throat CV: No chest pain, no palpitations, no LE edema Pulm: See HPI GI: No nausea or vomiting, no change in bowel habits, no melena : No frequency, no urgency, no dysuria Musc: No back pain, no joint swelling, no recent injury Skin: No rash, no lesions, no erythema Endo: No excessive thirst, no heat/cold intolerance Heme: No unusual bruising or bleeding, no swollen glands Neuro: No syncope, no numbness/tingling, no focal weakness Vasc: No claudication Psych: No recent change in mood, no SI or HI <BenjyBecki castillo - Last Filed: 06/09/19 09:10> *Physical Exam - Vital Signs Last Vital Signs Temp Pulse Resp BP Pulse Ox 98 F 110 H 26 H 148/92 100 06/09/19 08:13 06/09/19 08:13 06/09/19 08:13 06/09/19 08:13 06/09/19 08:13 - Physical Exam General: Comfortable, no acute distress HEENT: PERRL, EOMI, MMM, voice normal, normal neck ROM Cards: RRR, no murmur appreciated Pulm: Breathing comfortably, good breath sounds, minimal scattered wheezing bilaterally Abd: Soft, nontender, nondistended Ext: Atraumatic. No LE edema. ROM intact. WWP Skin: Normal color, no rashes or lesions Neuro: A&Ox3, CN grossly intact, normal speech, motor/sensory grossly intact and symmetric Psych: Mood appropriate to situation <BenjyannaBecki - Last Filed: 06/09/19 09:10> - Vital Signs Last Vital Signs Temp Pulse Resp BP Pulse Ox 98 F 98 H 20 127/93 100 06/09/19 08:13 06/09/19 09:03 06/09/19 09:03 06/09/19 09:03 06/09/19 08:13 <Aleah Kelly - Last Filed: 06/10/19 15:39> ED Treatment Course - Medications Given in the ED: ED Medications Discontinued Medications Generic Name Dose Route Start Last Admin Trade Name Freq PRN Reason Stop Dose Admin Albuterol/Ipratropium 2 amp 06/09/19 08:15 06/09/19 08:16 Duoneb - NEB 06/09/19 08:16 2 amp NOW ONE Administration <Becki Simeon - Last Filed: 06/09/19 09:10> - Medications Given in the ED: ED Medications Discontinued Medications Generic Name Dose Route Start Last Admin Trade Name Jaison PRN Reason Stop Dose Admin Albuterol/Ipratropium 2 amp 06/09/19 08:15 06/09/19 08:16 Duoneb - NEB 06/09/19 08:16 2 amp NOW ONE Administration Albuterol/Ipratropium 1 amp 06/09/19 08:29 06/09/19 08:36 Duoneb - NEB 06/09/19 08:30 1 amp ONCE ONE Administration Ibuprofen 600 mg 06/09/19 08:46 06/09/19 09:03 Motrin - PO 06/09/19 08:47 Not Given ONCE ONE <Aleah Kelly - Last Filed: 06/10/19 15:39> Medical Decision Making - Medical Decision Making 06/09/19 08:30 Becky French is a 43yo woman with a PMH of asthma who presents reporting acute onset of SOB when she woke this morning. - Given 2 duonebs with improvement, only scattered wheezing. Pt reports still feeling SOB. - 3rd duoneb ordered. Will reassess - Pt already took prednisone at home, will not give additional 06/09/19 08:51 - Pt agitated, states she wants to leave - No wheezing on exam - Given albuterol MDI refill, prednisone 50mg for 5 days. Will d/c home with PMD follow up. Pt states she no longer has a PMD, will give info for the primary care center Discussed with Dr Leticia Simeon PGY2 <Becki Simeon - Last Filed: 06/09/19 09:10> Discharge - Discharge Information Problems reviewed: Yes - Admission No <Becki Simeon - Last Filed: 06/09/19 09:10> <Aleah Kelly - Last Filed: 06/10/19 15:39> - Discharge Information Clinical Impression/Diagnosis: Asthma exacerbation Qualifiers: Asthma severity: mild Asthma persistence: unspecified Qualified Code(s): J45.901 - Unspecified asthma with (acute) exacerbation Condition: Stable Disposition: HOME - Additional Discharge Information Prescriptions: Albuterol Sulfate Inhaler - [Ventolin Hfa Inhaler -] 1 - 2 inh PO Q4H PRN #1 inhaler PRN Reason: Short Of Breath/Wheezing Prednisone [Prednisone 50 MG TABLETS] 50 mg PO DAILY #5 tablet - Follow up/Referral Referrals: Katie Sylvester MD [Primary Care Provider] - - Patient Discharge Instructions Patient Printed Discharge Instructions: DI for Asthma -- Adult Additional Instructions: Discharge Instructions: You were seen in the emergency department for an asthma flare. You were given breathing treatments with improvement in your symptoms. Home Care and Follow Up: - You have been given a new albuterol inhaler. You may use 1-2 puffs every 4 hours as needed for shortness of breath or wheezing - You have been prescribed prednisone, a steroid. This should be taken 50mg once daily for 5 days. Start tomorrow since you already had steroids today. - Make an appointment to follow up with a primary care doctor within the next 1- 2 weeks. You have been given contact information for the [facility] primary care center if you need to establish care. - Seek immediate care for worsening symptoms, difficulty breathing that does not improve with treatment, or any other medical emergency.
[2019-06-09] MEDS ORDERED: IBUPROFEN 600 MG TABLET (FP) PO ONE ×2 (08:46→08:51)
--- NOTE | 2019-06-09 09:03 | PDOC ---
Attending Attestation - Resident Resident Name: Becki Simeon - ED Attending Attestation I have performed the following: I have examined & evaluated the patient, The case was reviewed & discussed with the resident, I agree w/resident's findings & plan - HPI HPI: 06/09/19 [id number] female with history of asthma presenting with shortness of breath and asthma exacerbation this morning. Usually this is associated with upper back and shoulder pain. She took her albuterol at home and ran out of her inhaler. No chest pain, no fevers or chills, no congestion no weakness or paresthesias no leg pain or swelling. - Physicial Exam PE: 06/09/19 09:02 Agree with the resident's HPI and PE as documented in the electronic medical record. NAD, well appearing, EOMI, PERRL, nl conjunctiva, anicteric; neck supple. lungs clear, RRR, abdomen soft nontender. obese, no rebound, guarding. Back nontender. KIDD x4, no focal neuro deficits. no calf tenderness, WWP, normal skin color - Medical Decision Making 06/09/19 09:03 Vital Signs Temp Pulse Resp BP Pulse Ox 98 F 110 H 26 H 148/92 100 06/09/19 08:13 06/09/19 08:13 06/09/19 08:13 06/09/19 08:13 06/09/19 08:13 Most likely asthma exacerbation due to weather related changes. Vital signs noted, afebrile, tachycardia 110, blood pressure within normal limits. This is most likely due to her asthma exacerbation and recent albuterol administration. She is getting 3 duo nebs. She also took a dose of her prednisone at home 40 mg which was an old prescription from previously. We will give her additional supply of prednisone for several more days and albuterol inhaler. repeat VS checked as documented. no longer tachy, improved down to 98. breathing comfortable. speaking full sentences, no distress. Supportive care instructions, compliance with administration and medications and discharged in stable condition, impression and plan discussed and patient agreeable Pt to be discharged in stable condition. Patient and family made aware of clinical impression, treatment recommendations and disposition plan, return precautions discussed (including but not limited to new or persistent/worsening symptoms, pain, fevers, or signs of infection, chest pain, respiratory distress , inability to tolerate oral intake, dehydration, syncope, or neurologic changes ). Follow up with PMD as recommended, follow up information provided, take medications as instructed for duration of time. continue with supportive care, avoid triggers and precipitants. All questions answered to patient's satisfaction and expressed understanding and comfort with this. At the time of discharge, the patient is alert, clinically improved, tolerating po and verbalizes understanding of instructions, satisfied with the care received and felt comfortable with the plan. Patient does not suffer from an acute life- threatening medical condition at this time and is safe for outpatient follow- up. 06/09/19 09:08
[2019-06-09 09:04] VITALS: BP 127/93; PULSE 98
== END 2019-06-09 09:05 | disposition home or self-care (01) ==
LOC: JER 08:04
PROC: 3E0F7GC Introduction of Other Therapeutic Substance into Respiratory Tract, Via Natural or Artificial Opening (ICD-10-PCS; principal; 2019-06-09)
PROC: 3E0F7GC Introduction of Other Therapeutic Substance into Respiratory Tract, Via Natural or Artificial Opening (ICD-10-PCS; 2019-06-09)
DX: J45.901 Unspecified asthma with (acute) exacerbation (principal)
CPT/HCPCS: 94640; 99281-25

== ENCOUNTER 2021-02-18 14:28 | Emergency (ER) | payer OTHER ==
[2021-02-18 14:34] VITALS: TEMP 99; BMI 31.3
[2021-02-18] MEDS ORDERED: ALBUTEROL SO4 2.5/IPRATROPIUM 0.5 INH SOL 3 ML VIAL.NEB. NEB ONE ×3 (14:39→15:26)
[2021-02-18] MEDS: ALBUTEROL SO4 2.5/IPRATROPIUM 0.5 INH SOL 3 ML VIAL.NEB. NEB SCH ×3 (14:45→15:07)
[2021-02-18] MEDS ORDERED: methylPREDNISolone NA SUCC 125 MG/2 ML VIAL ONE (14:59)
[2021-02-18] MEDS ORDERED: methylPREDNISolone NA SUCC 125 MG/2 ML VIAL IVPUSH ONE (15:03)
[2021-02-18 17:17] VITALS: BP 134/48
[2021-02-18 18:11] VITALS: PULSE 97
== END 2021-02-18 17:18 | disposition home or self-care (01) ==
LOC: JER 14:28
PROC: 3E0F7GC Introduction of Other Therapeutic Substance into Respiratory Tract, Via Natural or Artificial Opening (ICD-10-PCS; principal; 2021-02-18)
PROC: 3E0F7GC Introduction of Other Therapeutic Substance into Respiratory Tract, Via Natural or Artificial Opening (ICD-10-PCS; 2021-02-18)
PROC: 3E033GC Introduction of Other Therapeutic Substance into Peripheral Vein, Percutaneous Approach (ICD-10-PCS; 2021-02-18)
DX: J45.21 Mild intermittent asthma with (acute) exacerbation (principal)
CPT/HCPCS: 99284-25

== ENCOUNTER 2021-06-15 10:32 | Emergency (ER) | payer OTHER ==
[2021-06-15 10:52] VITALS: BP 104/82; PULSE 103; TEMP 98.1; BMI 31.3
[2021-06-15] MEDS ORDERED: predniSONE 20 MG TABLET (UD) ONE (10:55)
[2021-06-15] MEDS ORDERED: ALBUTEROL SO4 2.5/IPRATROPIUM 0.5 INH SOL 3 ML VIAL.NEB. NEB ONE ×2 (10:55→11:30)
[2021-06-15] MEDS ORDERED: ALBUTEROL SO4 2.5/IPRATROPIUM 0.5 INH SOL 3 ML VIAL.NEB. NEB SCH (11:15)
== END 2021-06-15 11:40 ==
LOC: JER 10:32
PROC: 3E0F7GC Introduction of Other Therapeutic Substance into Respiratory Tract, Via Natural or Artificial Opening (ICD-10-PCS; principal; 2021-06-15)
DX: J45.909 Unspecified asthma, uncomplicated (principal)
CPT/HCPCS: 93005; 93010; 99283-25

== ENCOUNTER 2022-03-27 16:08 | Emergency (ER) | payer OTHER ==
[2022-03-27 16:24] VITALS: TEMP 97.9; BMI 38.7
[2022-03-27] MEDS ORDERED: morphine CARPU-JECT 4 MG/1 ML DISP.SYRIN IVPUSH ONE (17:24)
[2022-03-27] MEDS ORDERED: DEXAMETHASONE SOD PHOSPHATE 10 MG/1 ML VIAL IVPUSH ONE (17:24)
[2022-03-27] MEDS ORDERED: morphine SULFATE 4 MG/ML VIAL ONE (17:30)
[2022-03-27] MEDS ORDERED: ALBUTEROL SO4 2.5/IPRATROPIUM 0.5 INH SOL 3 ML VIAL.NEB. NEB ONE (17:30)
[2022-03-27] MEDS ORDERED: DEXAMETHASONE SOD PHOSPHATE 10 MG/1 ML VIAL ONE (17:30)
[2022-03-27 17:42] LABS: BASO % 0.4 % (0-2.0); EOS % 7.7 % (0-4.5); HEMATOCRIT 38.5 % (32.4-45.2); LYMPH % 35.6 % (8-40); MCH 27.8 pg (25.7-33.7); MCHC 33.8 g/dl (32.0-36.0); MEAN CELL VOLUME 82.2 fl (80-96); MEAN PLT VOLUME 8.1 fl (7.5-11.1); MONO % 6.7 % (3.8-10.2); NEUT % 49.6 % (42.8-82.8); PLATELET COUNT 290 10^3/uL (134-434); RBC 4.68 M/mm3 (3.60-5.2); WHITE BLOOD COUNT 7.5 K/mm3 (4.0-10.0)
[2022-03-27] MEDS ORDERED: ALBUTEROL SO4 2.5/IPRATROPIUM 0.5 INH SOL 3 ML VIAL.NEB. NEB SCH ×2 (17:43→20:00)
[2022-03-27] MEDS ORDERED: MAGNESIUM SULF 50% (8.12 MEQ/2 ML-1 GM VIAL) IVPB ONE (18:03)
[2022-03-27] MEDS ORDERED: MAGNESIUM SULFATE IN WATER 2 GM/50 ML IVPB IVPB ONE (18:09)
[2022-03-27 18:37] LABS: CHLORIDE 109 mmol/L (98-107); SODIUM 142 mmol/L (136-145)
[2022-03-27 18:40] LABS: CALCIUM 8.9 mg/dL (8.5-10.1)
[2022-03-27 18:41] LABS: ALBUMIN 3.7 g/dl (3.4-5.0); ANION GAP 7 MMOL/L (8-16); BLOOD UREA NITROGEN 10.2 mg/dL (7-18); CO2 27 mmol/L (21-32); GLUCOSE,RANDOM 84 mg/dL (74-106)
[2022-03-27 18:43] LABS: CREATININE 0.9 mg/dL (0.55-1.3); SGOT/AST 13 U/L (15-37); SGPT/ALT 24 U/L (13-61)
[2022-03-27 18:45] LABS: TOT PROT 7.2 g/dl (6.4-8.2)
[2022-03-27 18:46] LABS: ALK PHOS 114 U/L (45-117); BILIRUBIN,TOTAL 0.2 mg/dL (0.2-1)
[2022-03-27 21:17] VITALS: BP 123/79; PULSE 84; RESP 19
== END 2022-03-27 21:59 | disposition home or self-care (01) ==
LOC: JER 16:08
PROC: 3E033GC Introduction of Other Therapeutic Substance into Peripheral Vein, Percutaneous Approach (ICD-10-PCS; principal; 2022-03-27)
DX: R07.9 Chest pain, unspecified (principal); J45.909 Unspecified asthma, uncomplicated
CPT/HCPCS: 0241U-QW; 36415; 71046-TC-FY; 71275-TC; 74174-TC; 80053; 84484; 84703; 85025; 85379; 93005; 93010; 99285-25; J1100; Q9967

== ENCOUNTER 2022-05-28 08:48 | Emergency (ER) | payer OTHER ==
[2022-05-28] MEDS ORDERED: DEXAMETHASONE 4 MG TABLET (FP) PO ONE (09:06)
[2022-05-28 09:17] VITALS: BP 137/93; PULSE 112; RESP 18; TEMP 97.8; BMI 34.4
[2022-05-28] MEDS: ALBUTEROL SO4 2.5/IPRATROPIUM 0.5 INH SOL 3 ML VIAL.NEB. NEB SCH ×2 (09:28→09:54)
== END 2022-05-28 11:10 | disposition home or self-care (01) ==
LOC: JER 08:48
PROC: 3E0F7GC Introduction of Other Therapeutic Substance into Respiratory Tract, Via Natural or Artificial Opening (ICD-10-PCS; principal; 2022-05-28)
DX: R06.02 Shortness of breath (principal); R06.2 Wheezing
CPT/HCPCS: 99283-25

== ENCOUNTER 2022-06-14 17:26 | Emergency (ER) | payer OTHER ==
[2022-06-14 17:55] VITALS: TEMP 98.1; BMI 35.2
[2022-06-14] MEDS ORDERED: predniSONE 20 MG TABLET (UD) PO ONE (18:44)
[2022-06-14] MEDS ORDERED: ALBUTEROL SO4 0.083% IH SOL 2.5 MG/3 ML VIAL.NEB. NEB SCH (18:45)
[2022-06-14] MEDS ORDERED: predniSONE 20 MG TABLET (UD) ONE (18:49)
[2022-06-14] MEDS ORDERED: ALBUTEROL SO4 2.5/IPRATROPIUM 0.5 INH SOL 3 ML VIAL.NEB. NEB ONE (18:49)
[2022-06-14] MEDS: ALBUTEROL SO4 2.5/IPRATROPIUM 0.5 INH SOL 3 ML VIAL.NEB. NEB SCH ×4 (18:59→20:17)
[2022-06-14 20:32] LABS: BASO % 0.5 % (0-2.0); EOS % 8.2 % (0-4.5); HEMATOCRIT 40.1 % (32.4-45.2); LYMPH % 24.9 % (8-40); MCH 26.9 pg (25.7-33.7); MCHC 32.5 g/dl (32.0-36.0); MEAN CELL VOLUME 82.8 fl (80-96); MEAN PLT VOLUME 8.3 fl (7.5-11.1); MONO % 7.5 % (3.8-10.2); NEUT % 58.9 % (42.8-82.8); PLATELET COUNT 263 10^3/uL (134-434); RBC 4.84 M/mm3 (3.60-5.2); RDW 14.2 % (11.6-15.6); WHITE BLOOD COUNT 8.4 K/mm3 (4.0-10.0)
[2022-06-14 20:54] LABS: ALBUMIN 3.4 g/dl (3.4-5.0); CALCIUM 8.4 mg/dL (8.5-10.1)
[2022-06-14 20:55] LABS: BLOOD UREA NITROGEN 15.6 mg/dL (7-18)
[2022-06-14 20:57] LABS: CREATININE 0.9 mg/dL (0.55-1.3)
[2022-06-14 20:59] LABS: BILIRUBIN,TOTAL 0.1 mg/dL (0.2-1)
[2022-06-14] MEDS ORDERED: ALBUTEROL SO4 HFA INHALER IH ONE ×2 (21:01→21:04)
[2022-06-14] MEDS ORDERED: ACETAMINOPHEN 1000 MG/100 ML BAG IVPB ONE (21:17)
[2022-06-14] MEDS ORDERED: ACETAMINOPHEN INJECTION 100 ML IVPB ONE (21:40)
[2022-06-14 22:19] VITALS: BP 136/79; PULSE 99; RESP 20
== END 2022-06-14 22:20 | disposition home or self-care (01) ==
LOC: JER 17:26
PROC: 3E033GC Introduction of Other Therapeutic Substance into Peripheral Vein, Percutaneous Approach (ICD-10-PCS; principal; 2022-06-14)
PROC: 3E0F7GC Introduction of Other Therapeutic Substance into Respiratory Tract, Via Natural or Artificial Opening (ICD-10-PCS; 2022-06-14)
DX: J45.901 Unspecified asthma with (acute) exacerbation (principal)
CPT/HCPCS: 0241U-QW; 36415; 71045-TC-FY; 80053; 84484; 85025; 93005; 93010; 99285-25

== ENCOUNTER 2022-07-29 23:05 | Emergency (ER) | payer OTHER ==
[2022-07-29 23:12] VITALS: BP 121/84; PULSE 112; RESP 26; TEMP 98.7; BMI 35.2
[2022-07-29] MEDS ORDERED: DEXAMETHASONE SOD PHOSPHATE 4 MG/1 ML VIAL IVPUSH ONE (23:21)
[2022-07-29] MEDS ORDERED: DEXAMETHASONE SOD PHOSPHATE 10 MG/1 ML VIAL ONE (23:33)
[2022-07-29] MEDS ORDERED: ALBUTEROL SO4 2.5/IPRATROPIUM 0.5 INH SOL 3 ML VIAL.NEB. NEB ONE (23:53)
[2022-07-29] MEDS: ALBUTEROL SO4 2.5/IPRATROPIUM 0.5 INH SOL 3 ML VIAL.NEB. NEB SCH (23:54)
[2022-07-29 23:56] LABS: BASO % 0.6 % (0-2.0); EOS % 8.1 % (0-4.5); HEMATOCRIT 40.3 % (32.4-45.2); HEMOGLOBIN 13.3 GM/dL (10.7-15.3); LYMPH % 24.4 % (8-40); MCH 27.1 pg (25.7-33.7); MEAN CELL VOLUME 82.2 fl (80-96); MONO % 5.8 % (3.8-10.2); NEUT % 61.1 % (42.8-82.8); PLATELET COUNT 298 10^3/uL (134-434); RDW 14.2 % (11.6-15.6); WHITE BLOOD COUNT 8.4 K/mm3 (4.0-10.0)
[2022-07-30] MEDS: ALBUTEROL SO4 2.5/IPRATROPIUM 0.5 INH SOL 3 ML VIAL.NEB. NEB SCH (00:01)
[2022-07-30] MEDS ORDERED: ALBUTEROL SO4 HFA INHALER IH ONE ×2 (01:10→01:25)
[2022-07-30 01:52] LABS: CHLORIDE 109 mmol/L (98-107); SODIUM 139 mmol/L (136-145)
[2022-07-30 01:55] LABS: ALBUMIN 3.7 g/dl (3.4-5.0); ANION GAP 6 MMOL/L (8-16); BLOOD UREA NITROGEN 16.1 mg/dL (7-18); CO2 24 mmol/L (21-32); GLUCOSE,RANDOM 112 mg/dL (74-106); MAGNESIUM 2.1 mg/dL (1.8-2.4)
[2022-07-30 01:58] LABS: CREATININE 0.9 mg/dL (0.55-1.3); SGOT/AST 13 U/L (15-37); SGPT/ALT 26 U/L (13-61)
[2022-07-30 01:59] LABS: TOT PROT 7.2 g/dl (6.4-8.2)
[2022-07-30 02:00] LABS: BILIRUBIN,TOTAL 0.2 mg/dL (0.2-1)
[2022-07-30 02:01] LABS: ALK PHOS 104 U/L (45-117)
== END 2022-07-30 02:54 | disposition home or self-care (01) ==
LOC: JER 23:05
PROC: 3E0F7GC Introduction of Other Therapeutic Substance into Respiratory Tract, Via Natural or Artificial Opening (ICD-10-PCS; principal; 2022-07-29)
PROC: 3E0333Z Introduction of Anti-inflammatory into Peripheral Vein, Percutaneous Approach (ICD-10-PCS; 2022-07-29)
DX: J45.901 Unspecified asthma with (acute) exacerbation (principal)
CPT/HCPCS: 0241U-QW; 36415; 71045-TC-FY; 80053; 83735; 84484; 84703; 85025; 93005; 93010; 99285-25

== ENCOUNTER 2023-01-09 06:59 | Emergency (ER) | payer OTHER ==
[2023-01-09 07:14] VITALS: BMI 32.8
[2023-01-09] MEDS ORDERED: LIDOCAINE 5% TOPICAL PATCH TP ONE (08:16)
[2023-01-09] MEDS ORDERED: KETOROLAC TROMETHAMINE 30 MG/1 ML VIAL IM ONE ×2 (08:16→09:34)
[2023-01-09] MEDS ORDERED: KETOROLAC TROMETHAMINE 30 MG/1 ML VIAL ONE ×2 (08:50→10:37)
[2023-01-09] MEDS ORDERED: LIDOCAINE 5% TOPICAL PATCH ONE (08:50)
[2023-01-09] MEDS ORDERED: DEXAMETHASONE SOD PHOSPHATE 10 MG/1 ML VIAL IM ONE (09:34)
[2023-01-09] MEDS ORDERED: DEXAMETHASONE SOD PHOSPHATE 10 MG/1 ML VIAL ONE (10:38)
[2023-01-09 10:52] VITALS: BP 127/79; PULSE 67; RESP 16; TEMP 97.8
[2023-01-09] MEDS ORDERED: LIDOCAINE PATCH REMOVAL MC ONE (22:00)
== END 2023-01-09 10:57 | disposition home or self-care (01) ==
LOC: JER 06:59
PROC: 3E023GC Introduction of Other Therapeutic Substance into Muscle, Percutaneous Approach (ICD-10-PCS; principal; 2023-01-09)
PROC: 3E0233Z Introduction of Anti-inflammatory into Muscle, Percutaneous Approach (ICD-10-PCS; 2023-01-09)
DX: M54.30 Sciatica, unspecified side (principal)
CPT/HCPCS: 99284-25; J1100

== ENCOUNTER 2023-02-03 21:58 | Emergency (ER) | payer OTHER ==
[2023-02-03] MEDS ORDERED: LIDOCAINE PATCH REMOVAL MC SCH (22:00)
[2023-02-03 22:09] VITALS: BP 127/74; PULSE 94; RESP 17; TEMP 97.9; BMI 40.7
[2023-02-03] MEDS ORDERED: METHOCARBAMOL 500 MG TABLET PO ONE (23:09)
[2023-02-03] MEDS ORDERED: LIDOCAINE 5% TOPICAL PATCH TP ONE (23:09)
[2023-02-03] MEDS ORDERED: ACETAMINOPHEN 500 MG TABLET (FP) PO ONE (23:09)
[2023-02-03] MEDS ORDERED: KETOROLAC TROMETHAMINE 30 MG/1 ML VIAL IM ONE (23:31)
[2023-02-03] MEDS ORDERED: LIDOCAINE 5% TOPICAL PATCH ONE (23:35)
[2023-02-03] MEDS ORDERED: METHOCARBAMOL 500 MG TABLET ONE (23:36)
[2023-02-03] MEDS ORDERED: ACETAMINOPHEN 500 MG TABLET (FP) ONE (23:37)
[2023-02-03] MEDS ORDERED: ALBUTEROL SO4 2.5/IPRATROPIUM 0.5 INH SOL 3 ML VIAL.NEB. NEB SCH (23:45)
[2023-02-03] MEDS ORDERED: KETOROLAC TROMETHAMINE 30 MG/1 ML VIAL ONE (23:51)
== END 2023-02-04 05:17 | disposition home or self-care (01) ==
LOC: JER 21:58
PROC: 3E0233Z Introduction of Anti-inflammatory into Muscle, Percutaneous Approach (ICD-10-PCS; principal; 2023-02-03)
PROC: 3E0F7GC Introduction of Other Therapeutic Substance into Respiratory Tract, Via Natural or Artificial Opening (ICD-10-PCS; 2023-02-04)
DX: M54.42 Lumbago with sciatica, left side (principal); M79.662 Pain in left lower leg; R20.2 Paresthesia of skin
CPT/HCPCS: 72131-TC; 84703; 99284-25

== ENCOUNTER 2023-05-24 17:25 | Emergency (ER) | payer OTHER ==
[2023-05-24 17:37] VITALS: BP 149/96; RESP 22; TEMP 98.5; BMI 35.2
[2023-05-24] MEDS ORDERED: ALBUTEROL SO4 2.5/IPRATROPIUM 0.5 INH SOL 3 ML VIAL.NEB. NEB ONE ×2 (18:02→18:27)
[2023-05-24] MEDS: ALBUTEROL SO4 2.5/IPRATROPIUM 0.5 INH SOL 3 ML VIAL.NEB. NEB SCH ×3 (18:11→18:37)
[2023-05-24] MEDS ORDERED: DEXAMETHASONE SOD PHOSPHATE 10 MG/1 ML VIAL IM ONE (18:11)
[2023-05-24] MEDS ORDERED: DEXAMETHASONE SOD PHOSPHATE 10 MG/1 ML VIAL ONE (18:17)
[2023-05-24] MEDS ORDERED: ALBUTEROL SO4 HFA INHALER IH ONE ×2 (18:40→18:43)
[2023-05-24 18:46] VITALS: PULSE 108
== END 2023-05-24 20:12 | disposition home or self-care (01) ==
LOC: JER 17:25
PROC: 3E023GC Introduction of Other Therapeutic Substance into Muscle, Percutaneous Approach (ICD-10-PCS; principal; 2023-05-24)
PROC: 3E0F7GC Introduction of Other Therapeutic Substance into Respiratory Tract, Via Natural or Artificial Opening (ICD-10-PCS; 2023-05-24)
PROC: 3E0F7GC Introduction of Other Therapeutic Substance into Respiratory Tract, Via Natural or Artificial Opening (ICD-10-PCS; 2023-05-24)
DX: R06.02 Shortness of breath (principal); R05.9 Cough, unspecified; J45.901 Unspecified asthma with (acute) exacerbation; Z20.822 Contact with and (suspected) exposure to COVID-19
CPT/HCPCS: 0241U-QW; 71046-TC-FY; 99284-25; J1100

== ENCOUNTER 2023-09-20 19:36 | Emergency (ER) | payer SELFPAY ==
[2023-09-20 19:41] VITALS: BP 120/75; PULSE 95; RESP 18; TEMP 98.3; BMI 35.2
[2023-09-20] MEDS ORDERED: DEXAMETHASONE SOD PHOSPHATE 10 MG/1 ML VIAL ONE (20:13)
[2023-09-20] MEDS ORDERED: KETOROLAC TROMETHAMINE 30 MG/1 ML VIAL ONE (20:13)
[2023-09-20] MEDS: DEXAMETHASONE SOD PHOSPHATE 10 MG/1 ML VIAL IM ONE (20:21)
[2023-09-20] MEDS: KETOROLAC TROMETHAMINE 30 MG/1 ML VIAL IM ONE (20:21)
== END 2023-09-20 22:30 | disposition home or self-care (01) ==
LOC: JERFT 19:36
PROC: 3E023GC Introduction of Other Therapeutic Substance into Muscle, Percutaneous Approach (ICD-10-PCS; principal; 2023-09-20)
PROC: 3E0233Z Introduction of Anti-inflammatory into Muscle, Percutaneous Approach (ICD-10-PCS; 2023-09-20)
DX: M54.12 Radiculopathy, cervical region (principal); M54.2 Cervicalgia; M25.511 Pain in right shoulder; M79.601 Pain in right arm; R20.2 Paresthesia of skin; R53.1 Weakness; X50.0XXA Overexertion from strenuous movement or load, initial encounter; Y93.89 Activity, other specified; Y92.009 Unspecified place in unspecified non-institutional (private) residence as the place of occurrence of the external cause
CPT/HCPCS: 72125-TC; 99284-25; J1100

== ENCOUNTER 2024-05-30 13:38 | Emergency (ER) | payer SELFPAY ==
[2024-05-30 13:43] VITALS: BMI 35.2
[2024-05-30] MEDS ORDERED: ALBUTEROL SO4 2.5/IPRATROPIUM 0.5 INH SOL 3 ML VIAL.NEB. NEB ONE (13:56)
[2024-05-30] MEDS ORDERED: methylPREDNISolone NA SUCC 125 MG/2 ML VIAL ONE (14:17)
[2024-05-30] MEDS ORDERED: MAGNESIUM SULFATE IN WATER 2 GM/50 ML IVPB IVPB ONE (14:17)
[2024-05-30] MEDS: ALBUTEROL SO4 2.5/IPRATROPIUM 0.5 INH SOL 3 ML VIAL.NEB. NEB SCH (14:20)
[2024-05-30] MEDS: methylPREDNISolone NA SUCC 125 MG/2 ML VIAL IVPB ONE (14:23)
[2024-05-30] MEDS: MAGNESIUM SULF 50% (8.12 MEQ/2 ML-1 GM VIAL) IVPB ONE (14:23)
[2024-05-30 14:54] LABS: BASO % 0.3 % (0-2.0); HEMATOCRIT 38.2 % (32.4-45.2); HEMOGLOBIN 12.8 GM/dL (10.7-15.3); LYMPH % 30.1 % (8-40); MCHC 33.4 g/dl (32.0-36.0); MEAN CELL VOLUME 80.9 fl (80-96); MEAN PLT VOLUME 8.1 fl (7.5-11.1); MONO % 8.1 % (3.8-10.2); NEUT % 55.5 % (42.8-82.8); PLATELET COUNT 290 10^3/uL (134-434); RBC 4.73 M/mm3 (3.60-5.2); RDW 14.7 % (11.6-15.6); WHITE BLOOD COUNT 7.3 K/mm3 (4.0-10.0)
[2024-05-30 15:16] LABS: ALBUMIN 3.4 g/dl (3.4-5.0); CALCIUM 9.3 mg/dL (8.5-10.1)
[2024-05-30 15:21] LABS: BILIRUBIN,TOTAL 0.1 mg/dL (0.2-1); TOT PROT 7.1 g/dl (6.4-8.2)
[2024-05-30 15:29] LABS: BLOOD UREA NITROGEN 19.2 mg/dL (7-18)
[2024-05-30] MEDS ORDERED: ALBUTEROL SO4 0.083% IH SOL 2.5 MG/3 ML VIAL.NEB. NEB ONE ×3 (16:27→17:30)
[2024-05-30] MEDS: ALBUTEROL SO4 0.083% IH SOL 2.5 MG/3 ML VIAL.NEB. NEB SCH (16:30)
[2024-05-30] MEDS ORDERED: ALBUTEROL SO4 HFA INHALER IH ONE (17:31)
[2024-05-30] MEDS: ALBUTEROL SO4 0.083% IH SOL 2.5 MG/3 ML VIAL.NEB. NEB PRN (17:32)
[2024-05-30] MEDS: ALBUTEROL SO4 HFA INHALER IH PRN (17:32)
[2024-05-30 18:04] VITALS: BP 132/70; PULSE 86; RESP 19; TEMP 97.9
== END 2024-05-30 18:04 | disposition home or self-care (01) ==
LOC: JER 13:38
PROC: 3E033GC Introduction of Other Therapeutic Substance into Peripheral Vein, Percutaneous Approach (ICD-10-PCS; principal; 2024-05-30)
PROC: 3E033GC Introduction of Other Therapeutic Substance into Peripheral Vein, Percutaneous Approach (ICD-10-PCS; 2024-05-30)
PROC: 3E0F7GC Introduction of Other Therapeutic Substance into Respiratory Tract, Via Natural or Artificial Opening (ICD-10-PCS; 2024-05-30)
PROC: 3E0F7GC Introduction of Other Therapeutic Substance into Respiratory Tract, Via Natural or Artificial Opening (ICD-10-PCS; 2024-05-30)
DX: J45.901 Unspecified asthma with (acute) exacerbation (principal); R06.02 Shortness of breath; R07.89 Other chest pain; R05.9 Cough, unspecified; Z20.822 Contact with and (suspected) exposure to COVID-19
CPT/HCPCS: 0241U-QW; 36415; 80053; 85025; 99284-25

== ENCOUNTER 2024-08-23 06:19 | Emergency (ER) | payer SELFPAY ==
[2024-08-23 06:24] VITALS: TEMP 98.7; BMI 37.5
[2024-08-23] MEDS: ALBUTEROL SO4 2.5/IPRATROPIUM 0.5 INH SOL 3 ML VIAL.NEB. NEB SCH (06:45)
[2024-08-23] MEDS ORDERED: methylPREDNISolone NA SUCC 125 MG/2 ML VIAL ONE (06:51)
[2024-08-23] MEDS ORDERED: ALBUTEROL SO4 2.5/IPRATROPIUM 0.5 INH SOL 3 ML VIAL.NEB. NEB ONE (06:51)
[2024-08-23] MEDS: methylPREDNISolone NA SUCC 125 MG/2 ML VIAL IVPUSH ONE (07:00)
[2024-08-23 09:26] VITALS: BP 145/88; PULSE 97; RESP 18
== END 2024-08-23 09:34 | disposition home or self-care (01) ==
LOC: JER 06:19
PROC: 3E033GC Introduction of Other Therapeutic Substance into Peripheral Vein, Percutaneous Approach (ICD-10-PCS; principal; 2024-08-23)
PROC: 3E0F7GC Introduction of Other Therapeutic Substance into Respiratory Tract, Via Natural or Artificial Opening (ICD-10-PCS; 2024-08-23)
DX: J45.901 Unspecified asthma with (acute) exacerbation (principal); R06.82 Tachypnea, not elsewhere classified; R06.02 Shortness of breath
CPT/HCPCS: 99284-25

== ENCOUNTER 2024-09-14 14:19 | Observation (INO) | payer SELFPAY ==
[2024-09-14 14:33] VITALS: BMI 37.5
[2024-09-14] MEDS ORDERED: ALBUTEROL SO4 2.5/IPRATROPIUM 0.5 INH SOL 3 ML VIAL.NEB. NEB ONE (15:04)
[2024-09-14] MEDS: ALBUTEROL SO4 2.5/IPRATROPIUM 0.5 INH SOL 3 ML VIAL.NEB. NEB ONE (15:08)
[2024-09-14] MEDS ORDERED: methylPREDNISolone NA SUCC 125 MG/2 ML VIAL ONE (15:14)
[2024-09-14] MEDS: methylPREDNISolone NA SUCC 125 MG/2 ML VIAL IVPB ONE (15:29)
[2024-09-14] MEDS ORDERED: ACETYLCYSTEINE 20% 200MG/ML 4 ML VIAL *FOR ORAL / INH USE ONLY ONE (17:00)
[2024-09-14] MEDS ORDERED: KETOROLAC TROMETHAMINE 30 MG/1 ML VIAL ONE (17:01)
[2024-09-14] MEDS ORDERED: ACETAMINOPHEN 325 MG TABLET (FP) ONE (17:01)
[2024-09-14] MEDS: ACETYLCYSTEINE 20% 200MG/ML 30 ML VIAL *FOR ORAL / INH USE ONLY NEB ONE (17:10)
[2024-09-14] MEDS: KETOROLAC TROMETHAMINE 30 MG/1 ML VIAL IM ONE (17:10)
[2024-09-14] MEDS: ACETAMINOPHEN 500 MG TABLET (FP) PO ONE (17:10)
[2024-09-14 19:02] LABS: HEMATOCRIT 37.3 % (32.4-45.2); HEMOGLOBIN 12.2 GM/dL (10.7-15.3); MCH 26.2 pg (25.7-33.7); MCHC 32.8 g/dl (32.0-36.0); PLATELET COUNT 323 10^3/uL (134-434); RBC 4.67 M/mm3 (3.60-5.2); RDW 14.1 % (11.6-15.6)
[2024-09-14 19:40] LABS: POTASSIUM 3.4 mmol/L (3.5-5.1)
[2024-09-14 19:42] LABS: CALCIUM 8.6 mg/dL (8.5-10.1)
[2024-09-14 19:43] LABS: ALBUMIN 3.3 g/dl (3.4-5.0)
[2024-09-14 19:46] LABS: CREATININE 0.8 mg/dL (0.55-1.3)
[2024-09-14 19:48] LABS: BILIRUBIN,TOTAL 0.4 mg/dL (0.2-1); TOT PROT 7.3 g/dl (6.4-8.2)
[2024-09-14] MEDS: POTASSIUM CHLORIDE ORAL LIQUID 20 MEQ/15 ML PO ONE (20:58)
[2024-09-14] MEDS ORDERED: POTASSIUM CHLORIDE ORAL LIQUID 20 MEQ/15 ML ONE (21:00)
[2024-09-14 21:16] LABS: HIV INTERPRETATION NEGATIVE (NEGATIVE)
[2024-09-14] MEDS ORDERED: methylPREDNISolone NA SUCC 40 MG/1 ML VIAL ONE (21:23)
[2024-09-14] MEDS: methylPREDNISolone NA SUCC 40 MG/1 ML VIAL IVPUSH SCH (22:40)
[2024-09-15] MEDS ORDERED: ALBUTEROL SO4 2.5/IPRATROPIUM 0.5 INH SOL 3 ML VIAL.NEB. NEB ONE (01:11)
[2024-09-15] MEDS ORDERED: ALBUTEROL SO4 2.5/IPRATROPIUM 0.5 INH SOL 3 ML VIAL.NEB. NEB SCH ×3 (01:18→23:58)
[2024-09-15] MEDS ORDERED: ALBUTEROL SO4 2.5/IPRATROPIUM 0.5 INH SOL 3 ML VIAL.NEB. NEB PRN (06:42)
[2024-09-15] MEDS ORDERED: ACETAMINOPHEN 325 MG TABLET (FP) PO PRN (08:11)
[2024-09-15] MEDS: BUDESONIDE 0.25 MG/2ML INH SUSP VIAL NEB SCH (08:30)
[2024-09-15] MEDS: ACETAMINOPHEN 325 MG TABLET (FP) PO PRN (08:33)
[2024-09-15 08:39] LABS: HEMATOCRIT 37.3 % (32.4-45.2); HEMOGLOBIN 12.1 GM/dL (10.7-15.3); MCH 26.4 pg (25.7-33.7); MCHC 32.4 g/dl (32.0-36.0); MEAN CELL VOLUME 81.3 fl (80-96); MEAN PLT VOLUME 8.5 fl (7.5-11.1); PLATELET COUNT 358 10^3/uL (134-434); RBC 4.59 M/mm3 (3.60-5.2); RDW 14.1 % (11.6-15.6); WHITE BLOOD COUNT 12.4 K/mm3 (4.0-10.0)
[2024-09-15 08:44] LABS: POTASSIUM 3.9 mmol/L (3.5-5.1)
[2024-09-15 08:47] LABS: ALBUMIN 3.1 g/dl (3.4-5.0); CALCIUM 9.1 mg/dL (8.5-10.1)
[2024-09-15 08:49] LABS: BLOOD UREA NITROGEN 17.9 mg/dL (7-18)
[2024-09-15 08:52] LABS: CREATININE 0.8 mg/dL (0.55-1.3)
[2024-09-15 08:54] LABS: BILIRUBIN,TOTAL 0.4 mg/dL (0.2-1); TOT PROT 7.2 g/dl (6.4-8.2)
[2024-09-15] MEDS: ENOXAPARIN NA (PORCINE) 40 MG/0.4 ML DISP.SYRIN SQ SCH (10:41)
[2024-09-15] MEDS: methylPREDNISolone NA SUCC 40 MG/1 ML VIAL IVPUSH SCH (10:42)
[2024-09-15] MEDS: ALBUTEROL SO4 2.5/IPRATROPIUM 0.5 INH SOL 3 ML VIAL.NEB. NEB SCH (11:30)
[2024-09-15] MEDS: OSELTAMIVIR PHOSPHATE 75 MG CAPSULE PO SCH (11:43)
[2024-09-15] MEDS: ACETAMINOPHEN 1000 MG/100 ML BAG IVPB PRN (13:06)
[2024-09-15 14:45] VITALS: BP 148/86; PULSE 99; RESP 26; TEMP 98.9
== END 2024-09-15 16:19 | disposition home or self-care (01) ==
LOC: JER 14:19 → JERBED 18:38 → J7W 21:47
PROVIDERS: ADMIT Student in an Organized Health Care Education/Training Program
PROC: 3E0F7GC Introduction of Other Therapeutic Substance into Respiratory Tract, Via Natural or Artificial Opening (ICD-10-PCS; principal; 2024-09-14)
PROC: 3E023GC Introduction of Other Therapeutic Substance into Muscle, Percutaneous Approach (ICD-10-PCS; 2024-09-14)
PROC: 3E0233Z Introduction of Anti-inflammatory into Muscle, Percutaneous Approach (ICD-10-PCS; 2024-09-14)
DX: J10.1 Influenza due to other identified influenza virus with other respiratory manifestations (principal); J45.901 Unspecified asthma with (acute) exacerbation; Z87.891 Personal history of nicotine dependence; E87.6 Hypokalemia
CPT/HCPCS: 0241U-QW; 36415; 71045-TC-FY; 80053; 85027; 86803; 87389; 93005; 93010; 94150; 94640; 99285-25; G0378; J0131

== ENCOUNTER 2025-03-12 20:19 | Emergency (ER) | payer SELFPAY ==
[2025-03-12 20:29] VITALS: BP 121/76; PULSE 101; RESP 24; TEMP 98.4; BMI 32.8
[2025-03-12] MEDS ORDERED: ALBUTEROL SO4 2.5/IPRATROPIUM 0.5 INH SOL 3 ML VIAL.NEB. NEB ONE (20:30)
[2025-03-12] MEDS ORDERED: methylPREDNISolone NA SUCC 125 MG/2 ML VIAL ONE (21:28)
[2025-03-12] MEDS: ALBUTEROL SO4 2.5/IPRATROPIUM 0.5 INH SOL 3 ML VIAL.NEB. NEB ONE (21:40)
[2025-03-12] MEDS: methylPREDNISolone NA SUCC 125 MG/2 ML VIAL IVPB ONE (21:56)
[2025-03-12] MEDS: predniSONE 20 MG TABLET (UD) PO ONE (22:09)
== END 2025-03-12 22:09 | disposition home or self-care (01) ==
LOC: JER 20:19
PROC: 3E0F7GC Introduction of Other Therapeutic Substance into Respiratory Tract, Via Natural or Artificial Opening (ICD-10-PCS; principal; 2025-03-12)
DX: J45.909 Unspecified asthma, uncomplicated (principal); R06.02 Shortness of breath; R05.9 Cough, unspecified
CPT/HCPCS: 71045-TC-FY; 99283-25